=== PATIENT | female | born 1955 | race Hispanic/Latino ===

== ENCOUNTER 2023-03-12 13:00 | Inpatient (IN) | payer OTHER, MEDICARE ==
[~2023-03-12] VITALS: Ht 162.6 cm; Wt 60.5 kg
[2023-03-12 13:15] LABS: BASOPHILS % (AUTO) 0.6 % (0.0-5.0); EOSINOPHILS % (AUTO) 0.9 % (0.0-8.0); HEMATOCRIT 47.1 % (36-48); LYMPHOCYTES % (AUTO) 37.2 % (21.0-51.0); MEAN CORPUSCULAR HEMOGLOBIN 29.2 pg (27.0-33.0); MEAN CORPUSCULAR HGB CONC 32.9 g/dL (32.0-36.0); MEAN CORPUSCULAR VOLUME 88.9 fL (79-99); MONOCYTES % (AUTO) 7.1 % (3.0-13.0); NEUTROPHILS % (AUTO) 53.8 % (40.0-77.0); PLATELET COUNT (AUTO) 278 K/uL (130-400); RED CELL DISTRIBUTION WIDTH 13.5 % (11.0-15.5); WHITE BLOOD COUNT (AUTO) 9.4 K/uL (4.8-10.8)
[2023-03-12 13:24] LABS: CREATININE 0.9 mg/dL (0.5-1.5); POTASSIUM 3.7 mmol/L (3.5-5.1)
[2023-03-12] MEDS ORDERED: NITROGLYCERIN 0.4 MG SL TAB SL PRN (13:30)
[2023-03-12] MEDS ORDERED: ASPIRIN 325MG TAB PO ONE (13:30)
[2023-03-12 13:31] LABS: ALBUMIN 4.4 g/dL (3.5-5.0); TOTAL PROTEIN, SERUM 8.6 g/dL (6.0-8.3)
[2023-03-12 13:32] LABS: INR 0.93 (0.85-1.15); PROTHROMBIN TIME 9.6 SEC (9.6-11.6)
[2023-03-12] MEDS ORDERED: MORPHINE 2 MG SYG IV PRN (19:00)
[2023-03-12] MEDS ORDERED: ACETAMINOPHEN 325 MG TAB PO PRN ×2 (19:00)
[2023-03-12] MEDS ORDERED: ONDANSETRON 4MG INJ IV PRN (19:00)
[2023-03-12] MEDS ORDERED: MORPHINE 4 MG SYG IV PRN (19:00)
[2023-03-12] MEDS ORDERED: CLOPIDOGREL 300MG TAB PO ONE (19:00)
[2023-03-12] MEDS ORDERED: METOPROLOL TARTRATE 25 MG TAB PO ONE (19:00)
[2023-03-12] MEDS ORDERED: HEPARIN 25,000 UNITS/250ML D5W 250 ML IV ONE (19:25)
[2023-03-12] MEDS ORDERED: HEPARIN 5,000 UNIT VIAL ONE (19:25)
[2023-03-12] MEDS ORDERED: HEPARIN 5,000 UNIT VIAL SQ PRN (19:30)
[2023-03-12] MEDS ORDERED: HEPARIN 25,000 UNITS/250ML D5W 250 ML IV SCH (19:30)
[2023-03-12 20:32] LABS: INR 0.93 (0.85-1.15); PROTHROMBIN TIME 10.1 SEC (9.6-11.6)
[2023-03-12 20:34] LABS: PARTIAL THROMBOPLASTIN TIME 27.2 SEC (26.3-35.5)
[2023-03-12] MEDS: LACTATED RINGERS 1000ML 1,000 ML IV SCH (20:51)
[2023-03-12] MEDS: ATORVASTATIN 40 MG TABLET PO SCH (20:52)
[2023-03-12] MEDS: NITROGLYCERIN 1GM OINT 1 INCH/1GM TD SCH (20:52)
[2023-03-12 22:46] LABS: APPEARANCE,URINE CLEAR (CLEAR); BILIRUBIN,URINE NEGATIVE (NEGATIVE); COLOR,URINE YELLOW (YELLOW); GLUCOSE, URINE (UA) >=1000 mg/dL (NEGATIVE); KETONES,URINE 10 mg/dL (NEGATIVE); LEUKOCYTE ESTERASE ,URINE NEGATIVE Leu/uL (NEGATIVE); NITRATE,URINE NEGATIVE (NEGATIVE); OCCULT BLOOD,URINE NEGATIVE (NEGATIVE); PROTEIN,URINE NEGATIVE (NEGATIVE); UROBILINOGEN,URINE 0.2 mg/dL (0.2-1.0)
[2023-03-12 22:47] LABS: MUCUS,URINE RARE LPF (None Seen); RBC,URINE 0-1 /HPF (0-1); SQUAMOUS EPITHELIAL CELL,UR RARE /HPF (0-2); WBC,URINE 0-1 /HPF (0-1)
[2023-03-13] VITALS (17 sets, daily range): BP systolic 86–118; BP diastolic 55–71; PULSE 63–102; RESP 16–18; O2SAT 95–97
[2023-03-13] MEDS ORDERED: DULA1.5P SQ (02:04)
[2023-03-13] MEDS ORDERED: LOSA25TA2 PO (02:04)
[2023-03-13] MEDS ORDERED: EMPA25TA PO (02:04)
[2023-03-13] MEDS ORDERED: METF-446 PO (02:08)
[2023-03-13] MEDS ORDERED: INSU100V12 SQ (02:08)
[2023-03-13] MEDS: NITROGLYCERIN 1GM OINT 1 INCH/1GM TD SCH ×3 (02:18→20:56)
[2023-03-13 03:33] LABS: CREATININE 0.9 mg/dL (0.5-1.5); MAGNESIUM 1.9 mg/dL (1.80-2.40); POTASSIUM 3.9 mmol/L (3.5-5.1)
[2023-03-13 03:34] LABS: INR 0.94 (0.85-1.15); PARTIAL THROMBOPLASTIN TIME 62.8 SEC (26.3-35.5); PROTHROMBIN TIME 10.1 SEC (9.6-11.6)
[2023-03-13 03:38] LABS: BASOPHILS % (AUTO) 0.4 % (0.0-5.0); EOSINOPHILS % (AUTO) 0.7 % (0.0-8.0); HEMATOCRIT 43.8 % (36-48); LYMPHOCYTES % (AUTO) 28.6 % (21.0-51.0); MEAN CORPUSCULAR HEMOGLOBIN 28.7 pg (27.0-33.0); MEAN CORPUSCULAR HGB CONC 32.4 g/dL (32.0-36.0); MEAN CORPUSCULAR VOLUME 88.5 fL (79-99); MONOCYTES % (AUTO) 6.2 % (3.0-13.0); NEUTROPHILS % (AUTO) 63.6 % (40.0-77.0); PLATELET COUNT (AUTO) 278 K/uL (130-400); RED BLOOD CELL COUNT(AUTO) 4.95 MIL/uL (4.00-5.50); RED CELL DISTRIBUTION WIDTH 13.7 % (11.0-15.5); WHITE BLOOD COUNT (AUTO) 9.5 K/uL (4.8-10.8)
[2023-03-13 03:45] LABS: HEMOGLOBIN A1C 7.1 % (4.0-6.0)
[2023-03-13] MEDS: LACTATED RINGERS 1000ML 1,000 ML IV SCH ×2 (08:20→20:57)
[2023-03-13] MEDS: ASPIRIN 81MG CHEW TAB PO SCH (08:51)
[2023-03-13] MEDS: METOPROLOL TARTRATE 25 MG TAB PO SCH (08:51)
[2023-03-13] MEDS: CLOPIDOGREL 75MG TAB PO SCH (08:51)
[2023-03-13] MEDS ORDERED: FAMOTIDINE 20MG VIAL IV SCH (09:00)
[2023-03-13] MEDS ORDERED: LIDOCAINE HCL 400MG/20ML VIAL ONE (09:23)
[2023-03-13] MEDS ORDERED: FENTANYL CITRATE PF 50 MCG/1 ML 2ML VIAL ONE (09:23)
[2023-03-13] MEDS ORDERED: MIDAZOLAM HCL 1 MG/ML 2ML VIAL ONE ×2 (09:24→10:02)
[2023-03-13] MEDS ORDERED: HEPARIN 10,000 UNIT/10ML (1,000 UNIT/ML) VIAL ONE (09:24)
[2023-03-13] MEDS ORDERED: VERAPAMIL HCL 2.5 MG/ML VIAL ONE (09:24)
[2023-03-13] MEDS ORDERED: IOHEXOL-350 75 ML VIAL IV ONE (09:24)
[2023-03-13] MEDS ORDERED: NITROGLYCERIN 50MG VIAL ONE (09:24)
[2023-03-13 10:30] LABS: CHOLESTEROL 335 mg/dL (<200); HDL CHOLESTEROL 52 mg/dL (35-85); LDL DIRECT 203 mg/dL (0-99); TRIGLYCERIDES 420 mg/dL (30-200)
[2023-03-13] MEDS ORDERED: IOHEXOL-350 50ML VIAL IV ONE (10:39)
[2023-03-13] MEDS ORDERED: DEXTROSE 50%-WATER 50 ML DISP.SYRIN IV PRN ×2 (11:00)
[2023-03-13] MEDS ORDERED: GLUCAGON 1MG KIT 1 MG ML IM PRN ×2 (11:00)
[2023-03-13] MEDS: INSULIN HUMULIN R 100 UNIT/ML 3ML SQ SCH ×3 (11:30→20:26)
[2023-03-13 12:48] LABS: INR 0.97 (0.85-1.15); PROTHROMBIN TIME 11.3 SEC (9.6-11.6)
[2023-03-13 13:19] LABS: PARTIAL THROMBOPLASTIN TIME > 139.0 SEC (26.3-35.5)
[2023-03-13] MEDS: ATORVASTATIN 40 MG TABLET PO SCH (20:57)
[2023-03-13] MEDS ORDERED: ATORVASTATIN 40 MG TABLET PO SCH (21:00)
[2023-03-14] VITALS (8 sets, daily range): BP systolic 106–124; BP diastolic 55–60; PULSE 79–89; RESP 17–18; O2SAT 95–96
[2023-03-14 04:46] LABS: BASOPHILS % (AUTO) 0.5 % (0.0-5.0); EOSINOPHILS % (AUTO) 1.7 % (0.0-8.0); HEMATOCRIT 37.6 % (36-48); LYMPHOCYTES % (AUTO) 22.2 % (21.0-51.0); MEAN CORPUSCULAR HGB CONC 32.7 g/dL (32.0-36.0); MEAN CORPUSCULAR VOLUME 88.7 fL (79-99); MONOCYTES % (AUTO) 8.3 % (3.0-13.0); NEUTROPHILS % (AUTO) 66.8 % (40.0-77.0); PLATELET COUNT (AUTO) 207 K/uL (130-400); RED BLOOD CELL COUNT(AUTO) 4.24 MIL/uL (4.00-5.50); RED CELL DISTRIBUTION WIDTH 13.6 % (11.0-15.5); WHITE BLOOD COUNT (AUTO) 6.4 K/uL (4.8-10.8)
[2023-03-14 05:08] LABS: B-TYPE NATRIURETIC PEPTIDE 311 pg/mL (0-100)
[2023-03-14 05:12] LABS: ALBUMIN 2.8 g/dL (3.5-5.0); CREATININE 0.9 mg/dL (0.5-1.5); MAGNESIUM 1.8 mg/dL (1.80-2.40); POTASSIUM 3.8 mmol/L (3.5-5.1); THYROID STIMULATING HORMONE 3.48 uIU/mL (0.36-3.74); TOTAL PROTEIN, SERUM 5.9 g/dL (6.0-8.3)
[2023-03-14] MEDS: INSULIN HUMULIN R 100 UNIT/ML 3ML SQ SCH ×4 (05:14→21:00)
[2023-03-14] MEDS ORDERED: POTASSIUM CHLORIDE 20MEQ/100ML 100 ML IV PRN (05:30)
[2023-03-14] MEDS ORDERED: POTASSIUM CHLORIDE 10% ELIXIR 20 MEQ/15 ML UDCUP PO PRN (05:30)
[2023-03-14] MEDS ORDERED: MAGNESIUM 2GM PREMIX 50ML 50 ML IV PRN (05:30)
[2023-03-14] MEDS: KCL 20 MEQ ERTAB PO PRN ×2 (05:35→08:52)
[2023-03-14] MEDS: ASPIRIN 81MG CHEW TAB PO SCH (08:53)
[2023-03-14] MEDS: CLOPIDOGREL 75MG TAB PO SCH (08:53)
[2023-03-14] MEDS: METOPROLOL TARTRATE 25 MG TAB PO SCH (08:55)
[2023-03-14] MEDS ORDERED: ASPI-1005 PO (09:21)
[2023-03-14] MEDS ORDERED: CLOP-31 PO (09:21)
[2023-03-14] MEDS ORDERED: ATOR40TA69 PO (09:21)
[2023-03-14] MEDS ORDERED: SUCRALFATE 1 GM TABLET PO SCH (11:15)
[2023-03-14] MEDS: FUROSEMIDE 20MG VIAL IV SCH (12:43)
[2023-03-14] MEDS: KCL 20 MEQ ERTAB PO SCH (18:10)
[2023-03-14] MEDS ORDERED: PANTOPRAZOLE 40 MG TAB DR PO SCH (21:00)
[2023-03-14] MEDS: ATORVASTATIN 40 MG TABLET PO SCH (21:03)
[2023-03-15] VITALS: BP 125/62; PULSE 83; RESP 18
[2023-03-15] MEDS: FUROSEMIDE 20MG VIAL IV SCH (00:06)
[2023-03-15 04:00] VITALS: BP 118/69; PULSE 76; RESP 18
[2023-03-15 05:13] LABS: CREATININE 1.1 mg/dL (0.5-1.5); POTASSIUM 3.9 mmol/L (3.5-5.1)
[2023-03-15] MEDS: INSULIN HUMULIN R 100 UNIT/ML 3ML SQ SCH ×3 (05:22→16:20)
[2023-03-15 07:00] VITALS: BP 100/54; PULSE 100; RESP 54
[2023-03-15 07:30] VITALS: O2SAT 96
[2023-03-15] MEDS: KCL 20 MEQ ERTAB PO SCH (08:42)
[2023-03-15] MEDS: CLOPIDOGREL 75MG TAB PO SCH (08:43)
[2023-03-15] MEDS: ASPIRIN 81MG CHEW TAB PO SCH (08:43)
[2023-03-15 11:00] VITALS: BP 126/68; PULSE 79; RESP 18
[2023-03-15] MEDS: METOPROLOL TARTRATE 25 MG TAB PO SCH (13:10)
[2023-03-15 16:00] VITALS: BP 153/54; PULSE 68; RESP 20
[2023-03-15] MEDS ORDERED: LISI5TAB21 PO (16:40)
[2023-03-15] MEDS ORDERED: METO25TA3 PO (16:40)
[2023-03-16] MEDS ORDERED: LISINOPRIL 5 MG TABLET PO SCH (09:00)
[2023-03-16] MEDS ORDERED: METOPROLOL SUCCINATE 25 MG TAB.SR.24H PO SCH (09:00)
== END 2023-03-15 17:34 | disposition home or self-care (01) | DRG 280 ==
LOC: EDH 13:00 → EDHIP 18:31 → 4CH 03-13 02:08
PROVIDERS: ADMIT Internal Medicine; ATTEND Internal Medicine
PROC: 4A023N7 Measurement of Cardiac Sampling and Pressure, Left Heart, Percutaneous Approach (ICD-10-PCS; principal; 2023-03-13)
PROC: B2111ZZ Fluoroscopy of Multiple Coronary Arteries using Low Osmolar Contrast (ICD-10-PCS; 2023-03-13)
PROC: B2151ZZ Fluoroscopy of Left Heart using Low Osmolar Contrast (ICD-10-PCS; 2023-03-13)
DX: I21.4 Non-ST elevation (NSTEMI) myocardial infarction (principal); I50.43 Acute on chronic combined systolic (congestive) and diastolic (congestive) heart failure; I11.0 Hypertensive heart disease with heart failure; Z20.822 Contact with and (suspected) exposure to COVID-19; E11.9 Type 2 diabetes mellitus without complications; E78.5 Hyperlipidemia, unspecified; I25.2 Old myocardial infarction; Z79.02 Long term (current) use of antithrombotics/antiplatelets; Z79.82 Long term (current) use of aspirin; Z79.899 Other long term (current) drug therapy; Z86.73 Personal history of transient ischemic attack (TIA), and cerebral infarction without residual deficits; Z87.891 Personal history of nicotine dependence; Z90.710 Acquired absence of both cervix and uterus
CPT/HCPCS: 36415; 71045; 80048; 80053; 80061; 81001; 82948; 83036; 83735; 83880; 84100; 84443; 84484; 85025; 85378; 85610; 85730; 86850; 86900; 86901; 87635; 93005; 93306; 93308; 93356; 93458; 99156; 99157; C1769; G0378; J1644; J1940; J2250; J3010; J3475; J3490; Q9967; C1894

== ENCOUNTER → 2023-06-01 | Outpatient (CLI) | payer OTHER, MEDICARE ==
[~2023-06-01] MED LIST: ASPI-1005 PO; ATOR40TA69 PO; CLOP-31 PO; DULA1.5P SQ; EMPA25TA PO; INSU100V12 SQ; LISI5TAB21 PO; LOSA-417 PO; METF-446 PO; METO25TA3 PO
[2023-06-01 22:30] VITALS: PULSE 69; RESP 12
[2023-06-01 23:01] VITALS: PULSE 67; RESP 10
[2023-06-01 23:30] VITALS: PULSE 74; RESP 10
[2023-06-02] VITALS (11 sets, daily range): PULSE 66–81; RESP 10–14
== END | disposition home or self-care (01) ==
LOC: SLP 19:49
PROVIDERS: ATTEND Nurse Practitioner Family
DX: G47.33 Obstructive sleep apnea (adult) (pediatric) (principal)
CPT/HCPCS: 95810

== ENCOUNTER → 2023-10-21 | Outpatient (CLI) | payer OTHER, MEDICARE | END | disposition home or self-care (01) | LOC: SHCH 14:00 | PROVIDERS: ATTEND Student in an Organized Health Care Education/Training Program | DX: I11.0 Hypertensive heart disease with heart failure (principal); I50.20 Unspecified systolic (congestive) heart failure; E11.9 Type 2 diabetes mellitus without complications; E78.5 Hyperlipidemia, unspecified | CPT/HCPCS: 93306 ==

== ENCOUNTER → 2024-06-26 | Outpatient (CLI) | payer OTHER ==
[2024-06-26 13:48] LABS: BASOPHILS # (AUTO) 0.05 K/uL (0.00-0.20); BASOPHILS % (AUTO) 0.7 % (0.0-5.0); EOSINOPHILS # (AUTO) 0.08 K/uL (0.00-0.70); EOSINOPHILS % (AUTO) 1.2 % (0.0-8.0); HEMATOCRIT 42.7 % (36-48); IMMATURE GRANULOCYTE ABSOLUTE 0.04 K/uL (0-1); LYMPHOCYTES # (AUTO) 2.1 K/uL (1.0-4.8); LYMPHOCYTES % (AUTO) 30.8 % (21.0-51.0); MEAN CORPUSCULAR HEMOGLOBIN 29.8 pg (27.0-33.0); MEAN CORPUSCULAR HGB CONC 33.3 g/dL (32.0-36.0); MEAN CORPUSCULAR VOLUME 89.5 fL (79-99); MONOCYTES # (AUTO) 0.5 K/uL (0.1-1.0); MONOCYTES % (AUTO) 7.1 % (3.0-13.0); NEUTROPHILS # (AUTO) 4.1 K/uL (1.8-7.7); NEUTROPHILS % (AUTO) 59.6 % (40.0-77.0); PLATELET COUNT (AUTO) 264 K/uL (130-400); RED BLOOD CELL COUNT(AUTO) 4.77 MIL/uL (4.00-5.50); RED CELL DISTRIBUTION WIDTH 13.2 % (11.0-15.5); WHITE BLOOD COUNT (AUTO) 6.9 K/uL (4.8-10.8)
[2024-06-26 14:02] LABS: CREATININE 0.9 mg/dL (0.5-1.0); INR <= 0.93 (0.85-1.15); POTASSIUM 3.7 mmol/L (3.5-5.1); PROTHROMBIN TIME 9.7 SEC (9.6-11.6)
[2024-06-26 14:03] LABS: PARTIAL THROMBOPLASTIN TIME 25.5 SEC (26.3-35.5)
[2024-06-26 14:24] LABS: B-TYPE NATRIURETIC PEPTIDE 9 pg/mL (0-100)
--- NOTE | 2024-06-26 15:09 | EKG ---
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
== END | disposition home or self-care (01) ==
LOC: DAH 10:00 → EDSTATUS 12:00
PROVIDERS: ATTEND Student in an Organized Health Care Education/Training Program
DX: Z01.818 Encounter for other preprocedural examination (principal); I42.8 Other cardiomyopathies; I25.2 Old myocardial infarction; Z79.01 Long term (current) use of anticoagulants; Z53.8 Procedure and treatment not carried out for other reasons
CPT/HCPCS: 36415; 80048; 83880; 85025; 85610; 85730; 93005